=== PATIENT | female | born 1975 | race Caucasian/White ===

== ENCOUNTER 2023-11-23 15:41 | Emergency (ER) | payer MEDICAID ==
[~2023-11-23] VITALS: Ht 170.2 cm; Wt 58.0 kg
[2023-11-23 15:48] VITALS: O2SAT 100
[2023-11-23 16:21] LABS: BASOPHILS % 0.2 % (0.0-2.0); EOSINOPHILS % 0.2 % (0.0-5.0); HEMATOCRIT. 34.4 % (36.0-48.0); HEMOGLOBIN. 11.6 g/dL (12.0-16.0); LYMPHOCYTES % 10.3 % (20.0-50.0); MEAN CORPUSCULAR HEMOGLOBIN 33.5 pg (28.0-32.0); MEAN CORPUSCULAR HGB CONC 33.8 g/dL (31.0-37.0); MEAN CORPUSCULAR VOLUME 99.2 fL (81.0-99.0); MEAN PLATELET VOLUME 7.9 fl (7.4-10.4); MONOCYTES % 5.5 % (2.0-8.0); NEUTROPHILS % 83.8 % (40.0-76.0); PLATELET 326 x1000/uL (130-400); RED BLOOD CELL COUNT 3.47 mill/uL (4.2-5.4); RED CELL DISTRIBUTION WIDTH 15.4 % (11.6-14.6); WHITE BLOOD COUNT 9.5 x1000/uL (4.5-11.0)
[2023-11-23 16:29] LABS: CHLORIDE 106 mEq/L (98-107); SODIUM 136 mEq/L (136-145)
[2023-11-23 16:30] LABS: CALCIUM 8.3 mg/dL (8.7-10.4); CARBON DIOXIDE 20 mEq/L (21-32)
[2023-11-23 16:35] LABS: CREATININE 0.6 mg/dL (0.6-1.0); ETHANOL BLOOD 55 mg/dL (<10); GLUCOSE 90 mg/dL (70-105); UREA NITROGEN BLOOD 14 mg/dL (9-23)
[2023-11-23 16:36] LABS: ALANINE AMINOTRANSFERASE 32 IU/L (10-49)
[2023-11-23 16:37] LABS: ALBUMIN 3.6 g/dL (3.2-4.8); ASPARTATE AMINOTRANSFERASE 55 IU/L (<34); BILIRUBIN TOTAL 0.2 mg/dL (0.1-1.0); PROTEIN TOTAL 6.7 g/dL (6.0-8.3)
[2023-11-23 16:49] LABS: POTASSIUM 2.8 mEq/L (3.5-5.1)
[2023-11-23 16:58] LABS: CLARITY URINE CLEAR (CLEAR); COLOR URINE DARK YELLOW (YELLOW); GLUCOSE URINE NEGATIVE (NEGATIVE); KETONES URINE NEGATIVE (NEGATIVE); LEUKOCYTE ESTERASE URINE 1+ (NEGATIVE); NITRITE URINE NEGATIVE (NEGATIVE); OCCULT BLOOD URINE NEGATIVE (NEGATIVE); PROTEIN URINE 1+ (NEGATIVE); SPECIFIC GRAVITY URINE 1.023 (1.005-1.030); UROBILINOGEN URINE 0.2 E.U./dL (0.2-1.0)
[2023-11-23 17:06] LABS: HCG SCREEN NEGATIVE
[2023-11-23] MEDS: ACETAMINOPHEN 325MG TABLET PO STA (17:11)
[2023-11-23 17:16] LABS: *AMPHETAMINES SCREEN URINE PRESUMPTIVE POSITIVE (NEGATIVE); *BARBITURATES SCREEN URINE NEGATIVE (NEGATIVE); *BENZODIAZEPINES SCREEN URINE NEGATIVE (NEGATIVE); *COCAINE SCREEN URINE NEGATIVE (NEGATIVE); CANNABINOID URINE SCREEN NEGATIVE (NEGATIVE); ECSTASY MDMA SCREEN URINE NEGATIVE (NEGATIVE); METHADONE URINE SCREEN Neg (NEGATIVE); OPIATES URINE SCREEN NEGATIVE (NEGATIVE); PHENCYCLIDINE URINE SCREEN NEGATIVE (NEGATIVE)
[2023-11-23 17:26] LABS: RBC URINE NONE SEEN /hpf (0-2)
[2023-11-23 17:27] LABS: BACTERIA URINE NONE SEEN; SQUAMOUS EPITHELIAL CELL URINE NONE SEEN /lpf (RARE/1+)
[2023-11-23 18:08] LABS: TROPONIN I HIGH SENSITIVITY 12 ng/L (3.0-34)
[2023-11-23] MEDS: AZITHROMYCIN 500 MG TABLET PO STA (19:17)
[2023-11-23] MEDS: POTASSIUM CHLORIDE 20MEQ/PACKET PO ONE (19:17)
[2023-11-24] MEDS: BENZONATATE 100MG CAPSULE PO ONE (00:12)
[2023-11-24] MEDS: ACETAMINOPHEN 325MG TABLET PO ONE ×2 (00:13→11:33)
[2023-11-24] MEDS: AZITHROMYCIN 250 MG TABLET PO SCH (10:50)
[2023-11-24] MEDS: BENZONATATE 200MG CAPSULE PO ONE (11:32)
[2023-11-24] MEDS: POTASSIUM CHLORIDE 20MEQ/PACKET PO ONE (12:15)
[2023-11-24 12:53] LABS: CHLORIDE 103 mEq/L (98-107); SODIUM 136 mEq/L (136-145)
[2023-11-24 12:54] LABS: CALCIUM 8.8 mg/dL (8.7-10.4); CARBON DIOXIDE 25 mEq/L (21-32)
[2023-11-24 12:59] LABS: CREATININE 0.5 mg/dL (0.6-1.0); GLUCOSE 108 mg/dL (70-105); UREA NITROGEN BLOOD 15 mg/dL (9-23)
[2023-11-24] MEDS: OLANZAPINE 5MG TABLET ODT PO SCH (13:30)
[2023-11-24 14:12] LABS: CHLORIDE 104 mEq/L (98-107); POTASSIUM 4.3 mEq/L (3.5-5.1); SODIUM 137 mEq/L (136-145)
[2023-11-24 14:13] LABS: CALCIUM 8.8 mg/dL (8.7-10.4); CARBON DIOXIDE 23 mEq/L (21-32)
[2023-11-24 14:18] LABS: CREATININE 0.6 mg/dL (0.6-1.0); GLUCOSE 106 mg/dL (70-105); UREA NITROGEN BLOOD 16 mg/dL (9-23)
[2023-11-24 14:20] LABS: ALANINE AMINOTRANSFERASE 26 IU/L (10-49); ALBUMIN 3.6 g/dL (3.2-4.8); ASPARTATE AMINOTRANSFERASE 40 IU/L (<34); BILIRUBIN TOTAL 0.2 mg/dL (0.1-1.0); PROTEIN TOTAL 6.8 g/dL (6.0-8.3)
[2023-11-24 18:57] VITALS: BP 100/65; PULSE 99; RESP 18; TEMP 98.2
== END 2023-11-24 19:45 | disposition home or self-care (01) ==
LOC: ER 15:41
DX: R45.851 Suicidal ideations (principal); E87.6 Hypokalemia; J18.9 Pneumonia, unspecified organism; F14.10 Cocaine abuse, uncomplicated; F12.10 Cannabis abuse, uncomplicated; F17.200 Nicotine dependence, unspecified, uncomplicated; Z20.822 Contact with and (suspected) exposure to COVID-19
CPT/HCPCS: 36415; 71045; 80048; 80053; 80305; 80307; 80320; 80329; 81003; 84484; 84703; 85025; 87426; 93005; 99285; G0480